=== PATIENT | female | born 1995 | race Two or more races ===

== ENCOUNTER 2023-08-02 06:00 | Day surgery (SDC) | payer BC, OTHER ==
[2023-08-02 11:17] VITALS: BMI 35.1
[2023-08-02] MEDS ORDERED: ONDANSETRON 4 MG/2 ML VIAL IVPUSH PRN (11:57)
[2023-08-02] MEDS ORDERED: PROMETHAZINE HCL 25 MG/1 ML VIAL IVPB PRN (11:57)
[2023-08-02] MEDS ORDERED: LACTATED RINGERS SOLUTION 1,000 ML IV SCH (12:00)
[2023-08-02] MEDS ORDERED: FENTANYL CITRATE/PF 50 MCG/ML VIAL ONE (12:04)
[2023-08-02] MEDS ORDERED: SODIUM CHLORIDE 0.9% P/F 10 ML VIAL IJ ONE (12:05)
[2023-08-02] MEDS ORDERED: ceFAZolin SODIUM 1 GM VIAL ONE (12:05)
[2023-08-02] MEDS: ceFAZolin SODIUM 1 GM VIAL IVPB ONE (16:18)
[2023-08-02] MEDS: SUCRALFATE 1 GM/10 ML UNIT DOSE CUPS PO ONE (17:25)
[2023-08-02] MEDS: INDOMETHACIN 50 MG CAPSULE PO STA (17:45)
[2023-08-02 18:24] VITALS: RESP 20
[2023-08-02 19:09] VITALS: TEMP 97.5
[2023-08-02] MEDS: oxyCODONE HCL 5 MG TABLET PO PRN (19:20)
[2023-08-02] MEDS ORDERED: oxyCODONE HCL 5 MG TABLET ONE (19:21)
[2023-08-02 19:30] VITALS: BP 103/54; PULSE 75
[2023-08-03] MEDS ORDERED: SUCRALFATE 1 GM TABLET (FP) PO SCH (01:30)
[2023-08-03] MEDS ORDERED: INDOMETHACIN 50 MG CAPSULE PO SCH (02:00)
== END 2023-08-02 22:20 | disposition home or self-care (01) ==
LOC: JASU-SURG 06:00 → JLDR 21:21 → JASU-SURG 22:20
PROVIDERS: ATTEND Obstetrics & Gynecology
PROC: 0UVC7ZZ Restriction of Cervix, Via Natural or Artificial Opening (ICD-10-PCS; principal; 2023-08-02 12:00)
DX: O26.872 Cervical shortening, second trimester (principal); Z3A.22 22 weeks gestation of pregnancy
CPT/HCPCS: 94760

== ENCOUNTER 2023-11-22 06:27 | Inpatient (IN) | payer BC, OTHER ==
[2023-11-22] MEDS: ELECTROLYTE-148 SOLN 1,000 ML IV SCH (07:25)
[2023-11-22] MEDS ORDERED: AMPICILLIN SODIUM 2 GM VIAL ONE (08:35)
[2023-11-22] MEDS: AMPICILLIN - 2 GM in SODIUM CHLORIDE 100 ML IVPB ONE (08:35)
[2023-11-22 08:48] VITALS: BMI 36.6
[2023-11-22 09:42] LABS: BASO % 0.4 % (0-2.0); EOS % 0.7 % (0-4.5); HEMATOCRIT 31.4 % (32.4-45.2); HEMOGLOBIN 10.7 GM/dL (10.7-15.3); LYMPH % 12.5 % (8-40); MCH 31.3 pg (25.7-33.7); MCHC 34.2 g/dl (32.0-36.0); MEAN CELL VOLUME 91.5 fl (80-96); MEAN PLT VOLUME 9.3 fl (7.5-11.1); MONO % 6.4 % (3.8-10.2); PLATELET COUNT 240 10^3/uL (134-434); RBC 3.44 M/mm3 (3.60-5.2); RDW 13.4 % (11.6-15.6); WHITE BLOOD COUNT 12.7 K/mm3 (4.0-10.0)
[2023-11-22] MEDS ORDERED: ELECTROLYTE-148 SOLN 1,000 ML IV SCH (09:45)
[2023-11-22 09:48] LABS: INR 0.95 (0.83-1.09); PROTHROMBIN TIME (PATIENT) 10.9 SEC (9.7-13.0)
[2023-11-22 09:50] LABS: ACTIVATED PTT 26.4 SECONDS (25.2-36.5)
[2023-11-22 10:01] LABS: CALCIUM 9.1 mg/dL (8.5-10.1)
[2023-11-22 10:02] LABS: BLOOD UREA NITROGEN 6.5 mg/dL (7-18)
[2023-11-22 10:05] LABS: CREATININE 0.6 mg/dL (0.55-1.3)
[2023-11-22] MEDS ORDERED: FENTANYL/BUPIVACAINE/NS/PF - PCEA - 50 ML DISP.SYRIN EP ONE ×2 (10:25→14:23)
[2023-11-22] MEDS: FENTANYL/BUPIVACAINE/NS/PF - PCEA - 50 ML DISP.SYRIN EP SCH (11:00)
[2023-11-22] MEDS ORDERED: NALOXONE HCL 0.4 MG/ML VIAL IVPUSH PRN (11:03)
[2023-11-22] MEDS ORDERED: OXYTOCIN 30 UNITS in 0.9% NS 30 UNIT/500 ML INFUS.BAG IVPB ONE (11:37)
[2023-11-22] MEDS: OXYTOCIN 30 UNITS in 0.9% NS 30 UNIT/500 ML INFUS.BAG IVPB SCH (11:45)
[2023-11-22] MEDS ORDERED: AMPICILLIN SODIUM 1 GM VIAL ONE (12:01)
[2023-11-22] MEDS: AMPICILLIN - 1 GM in SODIUM CHLORIDE 100 ML IVPB SCH (12:05)
[2023-11-22 12:41] LABS: SYPHILIS W/ RPR CONF NON-REACTIVE (NONREACTIVE)
[2023-11-22 13:10] LABS: HIV INTERPRETATION NEGATIVE (NEGATIVE)
[2023-11-22] MEDS ORDERED: OXYTOCIN 20 UNITS in 0.9% NS 20 UNIT/1,000 ML INFUS.BAG IV ONE (13:57)
[2023-11-22] MEDS: OXYTOCIN 20 UNITS in 0.9% NS 20 UNIT/1,000 ML INFUS.BAG IV SCH (15:00)
[2023-11-22] MEDS ORDERED: BENZOCAINE 28 GM HEMORRHOIDAL OINTMENT TP PRN (15:15)
[2023-11-22] MEDS ORDERED: WITCH HAZEL 50% (TUCKS) 40 PAD/JAR PAD TP PRN (15:15)
[2023-11-22] MEDS ORDERED: BENZOCAINE 20% 57 GM BOTTLE TP PRN (15:15)
[2023-11-22] MEDS ORDERED: ACETAMINOPHEN 325 MG TABLET (FP) PO PRN (15:15)
[2023-11-22] MEDS ORDERED: BISACODYL 10 MG SUPP.RECT RC PRN (15:15)
[2023-11-22] MEDS ORDERED: oxyCODONE HCL 5 MG TABLET PO PRN (15:15)
[2023-11-22] MEDS: METHYLERGONOVINE MALEATE 0.2 MG/1 ML AMP IM PRN (17:05)
[2023-11-23 09:01] LABS: BASO % 1.3 % (0-2.0); EOS % 0.3 % (0-4.5); HEMATOCRIT 26.7 % (32.4-45.2); HEMOGLOBIN 9.2 GM/dL (10.7-15.3); LYMPH % 14.9 % (8-40); MCH 31.4 pg (25.7-33.7); MCHC 34.5 g/dl (32.0-36.0); MEAN CELL VOLUME 91.1 fl (80-96); MEAN PLT VOLUME 9.9 fl (7.5-11.1); MONO % 7.2 % (3.8-10.2); NEUT % 76.3 % (42.8-82.8); PLATELET COUNT 203 10^3/uL (134-434); RBC 2.93 M/mm3 (3.60-5.2); RDW 13.3 % (11.6-15.6); WHITE BLOOD COUNT 13.8 K/mm3 (4.0-10.0)
[2023-11-23] MEDS ORDERED: SENNOSIDES/DOCUSATE COMBO (SENNA PLUS) TABLET (UD) PO PRN (22:00)
[2023-11-24 08:27] VITALS: BP 108/69; PULSE 73; RESP 17; TEMP 98
[2023-11-24] MEDS: IBUPROFEN 600 MG TABLET (FP) PO PRN (09:33)
== END 2023-11-24 14:15 | disposition home or self-care (01) | DRG 807 ==
LOC: JDEL 06:27 → JLDR 07:45 → J3W 17:30
PROVIDERS: ADMIT Specialist; ATTEND Specialist
PROC: 10E0XZZ Delivery of Products of Conception, External Approach (ICD-10-PCS; principal; 2023-11-22)
PROC: 0HQ9XZZ Repair Perineum Skin, External Approach (ICD-10-PCS; 2023-11-22)
PROC: 0W8NXZZ Division of Female Perineum, External Approach (ICD-10-PCS; 2023-11-22)
DX: O45.93 Premature separation of placenta, unspecified, third trimester (principal); Z37.0 Single live birth; O70.0 First degree perineal laceration during delivery; O99.820 Streptococcus B carrier state complicating pregnancy; Z3A.37 37 weeks gestation of pregnancy
CPT/HCPCS: 36415; 59409; 80048; 85025; 85610; 85730; 86780; 86850; 86900; 86901; 87389

== ENCOUNTER 2024-05-15 04:05 | Day surgery (SDC) | payer OTHER ==
[2024-05-10 14:51] VITALS: BMI 36.5
[2024-05-15] MEDS ORDERED: LACTATED RINGERS SOLUTION 1,000 ML IV SCH (09:30)
[2024-05-15] MEDS ORDERED: ACETAMINOPHEN INJECTION 100 ML ONE (09:52)
[2024-05-15] MEDS: ACETAMINOPHEN 1000 MG/100 ML BAG IVPB ONE (09:53)
[2024-05-15] MEDS: INDOMETHACIN 50 MG CAPSULE PO ONE (11:14)
[2024-05-15] MEDS: FAMOTIDINE 20 MG TABLET PO ONE (11:29)
[2024-05-15] MEDS: LACTATED RINGERS SOLUTION 500 ML IV ONE (11:45)
[2024-05-15] MEDS ORDERED: ONDANSETRON 4 MG/2 ML VIAL IVPUSH PRN (13:51)
[2024-05-15] MEDS ORDERED: HYDROmorphone HCL CARPU-JECT 2 MG/1 ML DISP.SYRIN ONE (14:12)
[2024-05-15] MEDS: HYDROmorphone HCl 2 MG/ML VIAL IVPUSH ONE (14:13)
[2024-05-15 15:09] VITALS: BP 107/66; PULSE 85; RESP 20; TEMP 97.5
== END 2024-05-15 18:45 | disposition home or self-care (01) ==
LOC: JASU-SURG 04:05
PROVIDERS: ATTEND Obstetrics & Gynecology
PROC: 0UV Female Reproductive System, Restriction (ICD-10-PCS; principal; 2024-05-15 08:00)
DX: O34.32 Maternal care for cervical incompetence, second trimester (principal); Z3A.16 16 weeks gestation of pregnancy
CPT/HCPCS: 36415; 80053; 85027; 85610; 85730; 86780; 86850; 86900; 86901; 94760; J0131

== ENCOUNTER 2024-10-10 07:16 | Day surgery (SDC) | payer OTHER ==
[2024-10-04 10:35] VITALS: BMI 37.5
[2024-10-10] MEDS ORDERED: ONDANSETRON 4 MG/2 ML VIAL IVPUSH PRN (13:04)
[2024-10-10] MEDS: LACTATED RINGERS SOLUTION 1,000 ML IV ONE (16:00)
[2024-10-10 16:02] VITALS: RESP 20
[2024-10-10 16:26] VITALS: TEMP 98.1
[2024-10-10] MEDS ORDERED: AZITHROMYCIN IVPB 500 MG/250 ML BAG IVPB ONE (16:29)
[2024-10-10] MEDS: [UNRECOGNIZED DRUG - OTHER] IVPB ONE (16:48)
[2024-10-10] MEDS: AZITHROMYCIN 500 MG/250 ML IVPB ONE (16:48)
[2024-10-10 17:03] VITALS: BP 110/76; PULSE 95
== END 2024-10-10 18:45 | disposition home or self-care (01) ==
LOC: JASU-SURG 07:16 → JDEL 18:45
PROVIDERS: ATTEND Obstetrics & Gynecology
PROC: 0UCC7ZZ Extirpation of Matter from Cervix, Via Natural or Artificial Opening (ICD-10-PCS; principal; 2024-10-10 12:30)
DX: O26.893 Other specified pregnancy related conditions, third trimester (principal); Z3A.37 37 weeks gestation of pregnancy
CPT/HCPCS: 59025; 94760